=== PATIENT | female | born 1970 | race Two or more races ===

== ENCOUNTER 2018-03-10 11:08 | Outpatient (CLI) | payer OTHER | END 2018-03-10 11:17 | disposition home or self-care (01) | LOC: RAD 11:08 | DX: M54.6 Pain in thoracic spine (principal); M54.5 Low back pain ==

== ENCOUNTER 2018-11-04 12:04 | Outpatient (CLI) | payer OTHER | END 2018-11-04 12:09 | disposition home or self-care (01) | LOC: RAD 12:04 | DX: M25.572 Pain in left ankle and joints of left foot (principal) ==

== ENCOUNTER 2020-02-07 13:58 | Outpatient (CLI) | payer OTHER | END 2020-02-07 14:07 | disposition home or self-care (01) | LOC: MAMO-SONO 13:58 | DX: Z12.31 Encounter for screening mammogram for malignant neoplasm of breast (principal); D24.1 Benign neoplasm of right breast; D24.2 Benign neoplasm of left breast ==

== ENCOUNTER 2023-06-23 07:02 | Outpatient (CLI) | payer OTHER | END 2023-06-23 15:35 | disposition home or self-care (01) | LOC: MRI 07:02 | DX: K86.2 Cyst of pancreas (principal); R79.0 Abnormal level of blood mineral | CPT/HCPCS: 74181; 74182 ==

== ENCOUNTER 2024-10-09 06:58 | Emergency (ER) | payer OTHER ==
[~2024-10-09] VITALS: Ht 152.4 cm; Wt 60.8 kg
[2024-10-09] MEDS ORDERED: HUMALOG100 UNIT/2 SQ (07:25)
[2024-10-09] MEDS ORDERED: NAPR500T14 PO (07:25)
[2024-10-09] MEDS ORDERED: LANTUS SOL100 UNIT/1 SQ (07:25)
[2024-10-09] MEDS ORDERED: TETANUS & DIPHTHERIA TOX,ADULT 0.5 ML VIAL IM STA (10:49)
[2024-10-09] MEDS ORDERED: CEFTRIAXONE SODIUM 1,000 MG VIAL IM ONE (11:00)
== END 2024-10-09 11:13 | disposition home or self-care (01) ==
LOC: ER 06:58
DX: S01.82XA Laceration with foreign body of other part of head, initial encounter (principal); W18.39XA Other fall on same level, initial encounter; Y93.89 Activity, other specified; Y92.89 Other specified places as the place of occurrence of the external cause; Z88.8 Allergy status to other drugs, medicaments and biological substances; E03.8 Other specified hypothyroidism; E11.9 Type 2 diabetes mellitus without complications; Z79.4 Long term (current) use of insulin
CPT/HCPCS: 12004; 90471; 90714; 93005; J1670